=== PATIENT | male | born 1995 | race Caucasian/White ===

== ENCOUNTER 2019-10-07 03:47 | Emergency (ER) | payer OTHER ==
[~2019-10-07] VITALS: Ht 180.3 cm; Wt 83.9 kg
[2019-10-07] MEDS ORDERED: BIOTIN1 M1 PO (04:09)
[2019-10-07] MEDS ORDERED: FISH OIL 1,0001 EAC9 PO (04:09)
[2019-10-07] MEDS ORDERED: SUPER THERAVIT1 EACH PO (04:10)
[2019-10-07 05:23] VITALS: BP 130/53
== END 2019-10-07 05:26 | disposition home or self-care (01) ==
LOC: M.ERS 03:47 → EDBD 03:47 → M.ERS 05:26
DX: J02.9 Acute pharyngitis, unspecified (principal); Z20.828 Contact with and (suspected) exposure to other viral communicable diseases